=== PATIENT | male | born 1995 | race Caucasian/White ===

== ENCOUNTER 2019-02-23 21:10 | Emergency (ER) | payer BC, OTHER ==
[2019-02-23] MEDS: HYDROmorphone 1 MG/ML Syringe IVPUSH ONE (21:33)
[2019-02-23] MEDS: Diphtheria,Pertussis(Acell),Tetanus Vaccine 0.5 ML SDV IM ONE (21:36)
[2019-02-23] MEDS: Silver Sulfadiazine 1% Crm 400 GM Jar TOP ONE (21:37)
[2019-02-23 21:45] LABS: CHLORIDE,CL 102 mmol/L (98-107); SODIUM,NA 140 mmol/L (136-145)
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
== END 2019-02-23 22:10 | disposition home or self-care (01) ==
LOC: LL.ED 21:10
DX: S60.412A Abrasion of right middle finger, initial encounter (principal); S60.414A Abrasion of right ring finger, initial encounter; S60.416A Abrasion of right little finger, initial encounter; S60.512A Abrasion of left hand, initial encounter; S50.311A Abrasion of right elbow, initial encounter; S00.81XA Abrasion of other part of head, initial encounter; S80.212A Abrasion, left knee, initial encounter; S80.812A Abrasion, left lower leg, initial encounter; V29.9XXA Motorcycle rider (driver) (passenger) injured in unspecified traffic accident, initial encounter; Z23 Encounter for immunization
CPT/HCPCS: 36415; 80053; 85025; 90471; 90715; 96374; 99285-25; A9270-GY; J1170

== ENCOUNTER 2024-08-03 18:48 | Emergency (ER) | payer OTHER ==
[2024-08-03] MEDS: Acetaminophen 500 MG Tab PO ONE (19:11)
[2024-08-03] MEDS: traMADol 50 MG Tab PO ONE (19:12)
[2024-08-03] MEDS: Lidocaine 1% 5 ML VIAL INJECT ONE (19:23)
[2024-08-03] MEDS: Bupivacaine 0.5% 10 ML SDV INJECT ONE (19:23)
[2024-08-03] MEDS ORDERED: Sodium Chloride 0.9% 10 ML Syringe FLUSH PRN (19:33)
[2024-08-03] MEDS: ceFAZolin 1 GM in Sodium Chloride 0.9% 100 ML IV ONE (20:03)
[2024-08-03] MEDS: Take Home: Acetaminophen/HYDROcodone 325-5 MG, 5 Tab Pack PO ONE (20:37)
== END 2024-08-03 20:41 | disposition home or self-care (01) ==
LOC: LL.ED 18:48
DX: S61.203A Unspecified open wound of left middle finger without damage to nail, initial encounter (principal); W23.0XXA Caught, crushed, jammed, or pinched between moving objects, initial encounter
CPT/HCPCS: 64450; 73140; 96365; 99283; A9270; J0665; J0690; J3490